=== PATIENT | female | born 1945 | race African-American/Black ===

== ENCOUNTER 2017-05-23 13:58 | Inpatient (IN) | payer OTHER ==
[~2017-05-23] VITALS: Ht 167.6 cm; Wt 114.9 kg
--- NOTE | ~2017-05-23 | EKG ---
[address] [address] ELECTROCARDIOGRAM REPORT Name: VERN RODRIGUEZ Room #: 170-9 ADM IN M.R.#: [id number] Admission: 05/23/17 Attend Phys: Lefty Avendano MD Discharge: Date of : 49 Report #: [id number] THIS REPORT FOR: //name// [facility] ED Test Date: 2017-05-23 Test Time: 14:19:22 Pat Name: VERN RODRIGUEZ Department: Room: 170 Gender: F Cup[place] Melter: SUSAN : 1945 Requested By: Alexi Lyman Order Number: [id number] MD: Luis Enrique Casarez Measurements Intervals [place] Rate: 79 P: 67 [place]: 165 QRS: 17 QRSD: 84 T: 48 QT: 355 QTc: 407 Interpretive Statements Sinus rhythm No previous ECG available for comparison Electronically Signed On 05-23-2017 16:53:[address] [employer] by Luis Enrique Casarez [email or web address] <ELECTRONICALLY SIGNED> By: Luis Enrique Casarez MD 05/23/17 1653 1419 1419 Luis Enrique Casarez MD /KATHERINE
--- NOTE | ~2017-05-23 | 2DMMODE ---
[facility] [address] [facility] [place] [place] [address] 2 D/M-MODE ECHOCARDIOGRAM Name: VERN RODRIGUEZ Room #: 201-P ADM IN M.R.#: [id number] Admission: 05/23/17 Attend Phys: Lefty Avendano MD Discharge: Date of : 49 Date of Service: 05/24/17 1033 Report #: [id number] THIS REPORT FOR: //name// APPROVED REPORT Study performed: 05/24/2017 09:09:12 EXAM: Comprehensive 2D, Doppler, and color-flow Echocardiogram Patient Location: Bedside Room #: 201 Status: routine BSA: 2.19 HR: 56 bpm BP: 144/65 mmHg Other Information Study Quality: Good Indications COPD Diabetes Hypertension/HDD 2D Dimensions RVDd: 47.03 mm LVEF(%): 61.01 (>50%) IVSd: 9.99 (7-11mm) LVOT Diam: 19.27 (18-24mm) LVDd: 45.03 mm PWd: 9.70 (7-11mm) Ascending Ao: 28.23 (22-36mm) LVDs: 30.38 (25-40mm) Aortic Root: 27.01 mm IVC: 27.00 mm Viveros's LVEF: 61.01 % Volumes Left Atrial Volume (Systole) Single Plane 4CH: 71.60 mL Single Plane 2CH: 64.47 mL LA ESV Index: 35.00 mL/m2 Aortic Valve AoV Peak Josh.: 1.55 m/s AO Peak Gr.: 9.63 mmHg LVOT Max P.90 mmHg LVOT Max V: 1.21 m/s JADE Vmax: 2.28 cm2 Mitral Valve E/A Ratio: 1.7 [facility] [address] 2 D/M-MODE ECHOCARDIOGRAM Name: VERN RODRIGUEZ Room #: 201-[facility] IN M.R.#: [id number] Admission: 05/23/17 Attend Phys: Lefty Avendano MD Discharge: Date of : 49 Date of Service: 05/24/17 1033 Report #: [id number] MV Decel. Time: 240.11 ms MV E Max Josh.: 1.11 m/s MV A Josh.: 0.67 m/s MV PHT: 69.63 ms IVRT: 50.75 ms Pulmonary Valve PV Peak Josh.: 1.01 m/s PV Peak Gr.: 4.06 mmHg Pulmonary Vein P Vein S: 0.66 m/s P Vein A: 0.24 m/s P Vein D: 0.42 m/s P Vein A Dur.: 120.0 msec P Vein S/D Ratio: 1.57 Tricuspid Valve TR Peak Josh.: 2.99 m/s TR Peak Gr.: 35.84 mmHg PA Pressure: 46.00 mmHg Left Ventricle The left ventricle is normal size. There is normal left ventricular wall thickness. The left ventricular systolic function is normal. The left ventricular ejection fraction is within the normal range. LVEF is 55-60%. The left ventricular diastolic function is normal. Right Ventricle Right ventricle is dilated. The right ventricular systolic function is normal. Atria Left atrium is dilated. Right atrium is dilated. Aortic Valve The aortic valve is normal in structure. No aortic regurgitation is present. There is no aortic valvular stenosis. Mitral Valve The mitral valve is normal in structure. Mild mitral regurgitation. No evidence of mitral valve stenosis. Tricuspid Valve The tricuspid valve is normal in structure. There is trace to mild tricuspid regurgitation. Estimated PAP 46 mmHg. There is moderate pulmonary hypertension. Pulmonic Valve [address] [address] 2 D/M-MODE ECHOCARDIOGRAM Name: VERN RODRIGUEZ Room #: 201-P ADM IN ..#: [id number] Admission: 05/23/17 Attend Phys: Lefty Avendano MD Discharge: Date of : 49 Date of Service: 05/24/17 1033 Report #: [id number] The pulmonary valve is normal in structure. Trace to mild pulmonic regurgitation. Great Vessels The aortic root is normal in size. IVC is dilated and collapses >50% with inspiration. Pericardium There is no pericardial effusion. <Conclusion> The left ventricle is normal size. LVEF is 55-60%. Right ventricle is dilated. The right ventricular systolic function is normal. Left atrium is dilated. Right atrium is dilated. The aortic valve is normal in structure. The mitral valve is normal in structure. Mild mitral regurgitation. The tricuspid valve is normal in structure. There is trace to mild tricuspid regurgitation. Estimated PAP 46 mmHg. There is moderate pulmonary hypertension. The pulmonary valve is normal in structure. Trace to mild pulmonic regurgitation. There is no pericardial effusion. <ELECTRONICALLY SIGNED> By: Wayne Kaplan MD 05/24/17 1033 1033 1033 Wayne Kaplan MD /INF
--- NOTE | ~2017-05-23 | HC ---
[facility] [address] [place] [address] CONSULTATION Name: VERN RODRIGUEZ Room #: 201-P [facility] IN M.R.#: [id number] Admission: 05/23/17 Attend Phys: Lefty Avendano MD Discharge: 05/26/17 Date of : 49 Report #: [id number] THIS REPORT FOR: //name// CC: Lefty Aragon DATE OF SERVICE: 05/24/2017 REASON FOR PRESENTATION: Shortness of breath. HISTORY OF PRESENT ILLNESS: A 71-year-old with past medical history of diabetes mellitus and hypertension. There seems to be an element of chronic kidney disease, but she is not really sure what her levels are. She is also known to have some heart issues. She had a prolonged hospital stay at [facility] and [facility] but she is not able to tell me about the details. She came to [facility] from the [facility] reporting that she had increasing shortness of breath and lower extremity edema. She tells me that she had been treated for some sort of infections with a PICC line and daptomycin. She denies any fever or chills. She did have some diarrhea. No reported chest pain. No reported nausea or vomiting. On her presentation, she was found to have thrombocytopenia and a creatinine of 2 with unknown baseline. She was admitted for further evaluation and management. It does look like that she has 20 years history of diabetes mellitus. She is not aware of remote history of diabetic retinopathy, but she does have some sort of peripheral neuropathy. PAST MEDICAL HISTORY: 1. Diabetes mellitus. 2. Hyperlipidemia. 3. Chronic kidney disease. 4. Questionable history of HIV. 5. COPD. 6. Cellulitis of the left upper extremity. 7. Heart failure. MEDICATIONS: 1. Lasix. 2. Spironolactone. 3. Furosemide. 4. Daptomycin. 5. Albuterol. 6. Hydralazine. 7. Diltiazem. 8. Carvedilol. 9. Insulin. FAMILY HISTORY: Hypertension. [facility] [address] [place] [address] CONSULTATION Name: VERN RODRIGUEZ Room #: 201-P [facility] IN M..#: [id number] Admission: 05/23/17 Attend Phys: Lefty Avendano MD Discharge: 05/26/17 Date of : 49 Report #: [id number] SOCIAL HISTORY: Former smoker. She quit less than a year ago. ALLERGIES: SULFA. REVIEW OF SYSTEMS: GENERAL: Significant for weakness. CARDIOVASCULAR: Significant for shortness of breath. PULMONARY: Significant for shortness of breath. No cough or hemoptysis. GASTROINTESTINAL: Decreased p.o. intake. GENITOURINARY: No frequency, no urgency. MUSCULOSKELETAL: As per the history of present illness. PHYSICAL EXAMINATION: GENERAL: She is alert, oriented. She seems somewhat confused and slow. VITAL SIGNS: Blood pressure 140/48. HEAD AND NECK: No jugular venous distention. CHEST: Decreased air entry bilaterally. CARDIOVASCULAR: No rub. ABDOMEN: Soft, nontender. LOWER EXTREMITIES: +3 edema. LABORATORY DATA: Reviewed. She has leukopenia with a hematocrit of 25.7 and a platelet of 62. Creatinine is 2.0. No UA available. ASSESSMENT, IMPRESSION, PLAN: 1. Fluid overload with pulmonary edema. 2. Chronic kidney disease. 3. Diabetes mellitus. 4. Hypertension. 5. Human immunodeficiency virus. 6. Anemia. 7. Leukopenia. 8. First and most important is to obtain the patient's previous hospital records from the [facility] and from [facility]. 9. Initiate appropriate workup with avoidance of redundant work. 10. Check some urine studies. 11. Check urine protein to creatinine ratio. 12. Fluid restriction. 13. Salt restriction. 14. Cardiac echo. 15. Discontinue IV fluid. [address] [address] CONSULTATION Name: VERN RODRIGUEZ Room #: 201-P [facility] IN M.R.#: [id number] Admission: 05/23/17 Attend Phys: Lefty Avendano MD Discharge: 05/26/17 Date of : 49 Report #: [id number] 16. Check a CPK since she was on daptomycin. 17. We will continue to follow along. <ELECTRONICALLY SIGNED> By: Matt Paniagua MD 05/27/17 0832 0837 00 Matt Paniagua MD /emeterio
--- NOTE | ~2017-05-23 | HC ---
[facility] [address] [place] [address] CONSULTATION Name: VERN RODRIGUEZ Room #: 201-P [facility] IN M.R.#: [id number] Admission: 05/23/17 Attend Phys: Lefty Avendano MD Discharge: 05/26/17 Date of : 49 Report #: [id number] THIS REPORT FOR: //name// CC: Lefty Aragon TYPE OF REPORT: Infectious diseases consultation. REASON FOR CONSULTATION: I was asked to evaluate concerning HIV infection, MRSA bacteremia and respiratory compromise. HISTORY OF PRESENT ILLNESS: The patient was hospitalized through the Emergency Room on 05/23/2017 with complaint of shortness of breath over the last 24 hours. History is fairly complicated having had 2 recent hospitalizations, first was in mid March at [facility] where she had respiratory failure, on BiPAP. She cannot give me further details of that hospital stay. Dismissed only to return to [facility] the [place] with again shortness of breath. At that one of the hospital stays, she was diagnosed with MRSA bacteremia. For this, she had a PICC line placed and was discharged on daptomycin. I am suspecting that this was her most recent hospitalization at [facility]. This data will need to be obtained. Records have been asked for. She was dismissed to [facility] yesterday and developed increased shortness of breath and was therefore hospitalized. She has been on oxygen 4 liters per nasal cannula. She has had some cough with minimal sputum production. No chest pain. Peripheral edema has been an issue. She states that she has 1 kidney after her left nephrectomy for renal cell cancer. I do not know what her baseline renal function is. At presentation, she had temperature up to 100.5 degrees. Hemodynamically, she has been stable. No cough or sputum production since admission. Blood cultures have been obtained. She is now on telemetry in the CCU. ALLERGIES: PENICILLIN and SULFA. MEDICATIONS: As noted on her MAR including daptomycin and Triumeq for her HIV. No corticosteroids. She is on insulin. Other meds as noted on her MAR. PAST MEDICAL HISTORY: HIV, hypertension, COPD, diabetes, acute renal failure, congestive heart failure, previous pneumonia, renal cell cancer, status post left nephrectomy. FAMILY HISTORY: Noncontributory. SOCIAL HISTORY: Smoker of cigarettes. No significant alcohol intake. No tuberculosis exposure. REVIEW OF SYSTEMS: No nausea or vomiting. Has had occasional loose stool. No dysuria or frequency. [address] [address] CONSULTATION Name: VERN RODRIGUEZ Room #: [address] [place] [address] [place] [facility].#: [id number] Admission: 05/23/17 Attend Phys: Lefty Avendano MD Discharge: 05/26/17 Date of : 49 Report #: [id number] PHYSICAL EXAMINATION: VITAL SIGNS: Afebrile and hemodynamically stable. Alert and cooperative. Poor historian for details of her admission. GENERAL: Right upper extremity PICC unremarkable on 2 liters of oxygen per nasal cannula. Moderately obese. SKIN: Unremarkable. EXTREMITIES: 2+ peripheral edema in the lower extremities. CHEST: Decreased breath sounds in the bases. HEART: Regular without murmur. ABDOMEN: Soft and nontender. NEUROLOGICAL: Unremarkable. LABORATORY STUDIES: Hemoglobin 8.6; platelet count 62,000 and white count 2.3 with 70% segs and 30% lymphs. Sodium 142, potassium 4.9, bicarbonate 29 and creatinine 2. AST 60, ALT 96, alkaline phosphatase 60 and bilirubin 0.6. Blood cultures are pending. Influenza antigen negative. Ultrasound of lower extremities negative. BNP 1109. RADIOLOGICAL DATA: Chest x-ray, increased vascular congestion. No consolidative infiltrates. Renal ultrasound pending. IMPRESSION: A 71-year old underlying human immunodeficiency virus, chronic obstructive pulmonary disease, chronic kidney disease and congestive heart failure; presents with worsening of her heart failure in the setting of recent methicillin-resistant Staphylococcus aureus bacteremia. Unclear as to the source of her bacteremia at this time. We will need further records to define her source. No evidence of subacute bacterial endocarditis identified on examination. She has evidence of renal failure with a creatinine of 2. Unclear as to her baseline. She is pancytopenic. This also will need to be further evaluated with previous CBCs. RECOMMENDATION: We will continue with vancomycin adjusted for her renal failure. No evidence of pneumonia at this time. Could discontinue her gram-negative coverage. Obtain previous records to define her MRSA bacteremia workup including echocardiograms. Obtain further information regarding CD4 count and viral load. Unclear if she has had other opportunistic infections. Further information will be gleaned from the records once available. <ELECTRONICALLY SIGNED> By: Magdaleno Fontanez MD 07/02/17 0809 1021 0300 Magdaleno Fontanez MD /nt
[2017-05-23 14:00] VITALS: BP 135/50
[2017-05-23 14:34] LABS: ABSOLUTE NEUTROPHILS 2.9 thou/uL (1.4-8.2); BASOPHILS 0.4 % (0.0-2.0); EOSINOPHILS 0.5 % (0.0-3.0); HEMATOCRIT 25.5 % (37.0-47.0); HEMOGLOBIN 8.5 gm/dL (12.0-15.0); LYMPHOCYTES 30.4 % (24.0-44.0); MCH 34.2 pg (26.0-34.0); MCHC 33.5 g/dL (28.0-37.0); MCV 102.1 fL (80.0-100.0); MONOCYTES 6.8 % (1.0-8.0); POLYS 61.9 % (36.0-66.0); RBC 2.49 mil/uL (4.20-5.00); WBC 4.7 thou/uL (4.0-11.0)
[2017-05-23 14:36] LABS: BE(vivo) 2.3 mmol/L (-2 to +3); HCO3 28.7 mmol/L (22.0-26.0); PCO2 54.4 mmHg (35.0-45.0); PO2 75.1 mmHg (80.0-100.0)
[2017-05-23] MEDS ORDERED: HUMALOG100 UNIT/2 SQ (14:41)
[2017-05-23] MEDS ORDERED: COREG25 MG PO (14:41)
[2017-05-23] MEDS ORDERED: FLONASE 0.05%50 MCG NASAL (14:42)
[2017-05-23] MEDS ORDERED: CARDIZEM CD240 MG PO (14:42)
[2017-05-23] MEDS ORDERED: MUCINEX600 MG PO (14:42)
[2017-05-23] MEDS ORDERED: NEURONTIN 300M300 M2 PO (14:42)
[2017-05-23 14:43] LABS: ANION GAP 6 mmol/L (7-16); BUN 31 mg/dL (7-18); CALCIUM 8.4 mg/dL (8.5-10.1); CHLORIDE 106 mmol/L (98-107); CO2 32 mmol/L (21-32); CREATININE 1.7 mg/dL (0.6-1.0); GLUCOSE 152 mg/dL (74-106); POTASSIUM 4.4 mmol/L (3.5-5.1); SODIUM 144 mmol/L (136-145)
[2017-05-23] MEDS ORDERED: HYDRALAZINE 2525 MG PO (14:43)
[2017-05-23] MEDS ORDERED: HYDROXYZINE HCL25 M1 PO (14:43)
[2017-05-23] MEDS ORDERED: LANTUS100 UNIT/M SUBQ (14:43)
[2017-05-23] MEDS ORDERED: ISOSORBIDE DINI20 M2 PO (14:44)
[2017-05-23] MEDS ORDERED: MIRALAX17 G1 PO (14:45)
[2017-05-23] MEDS ORDERED: MICONAZOLE 31 EACH TOP (14:45)
[2017-05-23] MEDS ORDERED: TRIUMEQ TABLET1 EACH PO ×2 (14:46→14:47)
[2017-05-23] MEDS ORDERED: PROAIR HFA8.5 GM INH (14:46)
[2017-05-23] MEDS ORDERED: ANORO ELLIPTA1 EACH INH (14:48)
[2017-05-23] MEDS ORDERED: CARDURA4 MG PO (14:48)
[2017-05-23] MEDS ORDERED: ACIDOPHILUS1 EAC3 PO (14:48)
[2017-05-23] MEDS ORDERED: CUBICIN500 MG IVPB (14:50)
[2017-05-23 14:51] LABS: ALBUMIN 2.7 g/dL (3.4-5.0); SGOT 60 U/L (15-37); SGPT 96 U/L (30-65); TOTAL BILIRUBIN 0.6 mg/dL (<0.1-1.0); TOTAL PROTEIN 5.2 g/dL (6.4-8.2); TROPONIN-I < 0.04 ng/mL (<0.06)
[2017-05-23] MEDS ORDERED: LASIX 20 MG TAB20 MG PO (14:56)
[2017-05-23] MEDS ORDERED: ALDACTONE25 MG PO (14:57)
[2017-05-23] MEDS ORDERED: OXYGEN MISCELL (14:58)
[2017-05-23] MEDS ORDERED: LASIX 20 MG TAB20 MG INJECTION (14:58)
[2017-05-23 15:13] LABS: ANISOCYTOSIS 1+
[2017-05-23 15:14] LABS: PLATELET COUNT 65 thou/uL (150-400)
[2017-05-23 17:24] VITALS: BP 115/49
[2017-05-23 21:09] VITALS: BP 104/50
[2017-05-23 23:57] VITALS: BP 110/58
[2017-05-24 04:25] VITALS: BP 144/65
[2017-05-24 05:44] LABS: HEMATOCRIT 25.7 % (37.0-47.0); HEMOGLOBIN 8.6 gm/dL (12.0-15.0); MCHC 33.4 g/dL (28.0-37.0); MCV 101.9 fL (80.0-100.0); RBC 2.52 mil/uL (4.20-5.00); RDW 16.9 % (10.5-14.5); WBC 2.3 thou/uL (4.0-11.0)
[2017-05-24 05:57] LABS: CALCIUM 8.6 mg/dL (8.5-10.1); POTASSIUM 4.9 mmol/L (3.5-5.1)
[2017-05-24 07:13] LABS: ABSOLUTE NEUTROPHILS 1.6 thou/uL (1.4-8.2)
[2017-05-24 07:14] LABS: PLATELET COUNT 62 thou/uL (150-400); PLATELET ESTIMATE DECREASED
[2017-05-24 07:15] LABS: ANISOCYTOSIS 1+
[2017-05-24 07:16] LABS: MACROCYTES 1+; POLYCHROMASIA SLIGHT
[2017-05-24 08:00] VITALS: BP 142/58
[2017-05-24 11:23] VITALS: BP 127/56
[2017-05-24 15:26] VITALS: BP 104/49
[2017-05-24 19:59] VITALS: BP 136/61
[2017-05-25 04:20] VITALS: BP 132/43
[2017-05-25 04:31] LABS: ABSOLUTE NEUTROPHILS 2.2 thou/uL (1.4-8.2); BASOPHILS 0.5 % (0.0-2.0); EOSINOPHILS 0.1 % (0.0-3.0); HEMATOCRIT 24.1 % (37.0-47.0); HEMOGLOBIN 8.2 gm/dL (12.0-15.0); LYMPHOCYTES 26.7 % (24.0-44.0); MCH 34.3 pg (26.0-34.0); MCHC 33.9 g/dL (28.0-37.0); MCV 101.2 fL (80.0-100.0); MONOCYTES 5.4 % (1.0-8.0); PLATELET COUNT 79 thou/uL (150-400); POLYS 67.3 % (36.0-66.0); RBC 2.38 mil/uL (4.20-5.00); WBC 3.2 thou/uL (4.0-11.0)
[2017-05-25 04:36] LABS: CALCIUM 8.8 mg/dL (8.5-10.1); CREATININE 2.1 mg/dL (0.6-1.0); POTASSIUM 4.8 mmol/L (3.5-5.1)
[2017-05-25 04:38] LABS: URINE BILIRUBIN NEGATIVE (Negative); URINE BLOOD TRACE (Negative); URINE CLARITY CLEAR; URINE COLOR YELLOW; URINE GLUCOSE-RANDOM* NEGATIVE (Negative); URINE KETONES NEGATIVE (Negative); URINE LEUKOCYTES NEGATIVE (Negative); URINE NITRITE NEGATIVE (Negative); URINE PROTEIN (DIPSTICK) NEGATIVE (Negative); URINE SPECIFIC GRAVITY 1.025 (1.005-1.035); URINE UROBILINOGEN 0.2 E.U./dl (0.2-1.0)
[2017-05-25 08:18] VITALS: BP 133/58
[2017-05-25 11:08] VITALS: BP 134/56
[2017-05-25 11:58] LABS: URINE CREATININE-RANDOM* 130.9 mg/dL; URINE PROTEIN-RANDOM* 31.8 mg/dL (<11.9)
[2017-05-25 15:34] VITALS: BP 156/80
[2017-05-25 19:33] VITALS: BP 152/80
== END 2017-05-26 04:46 | DRG 871 ==
LOC: ER 13:58 → 2N 15:17 → EROBS 15:17 → 2N 17:34
PROVIDERS: Hospitalist; Nurse Practitioner; Physician Assistant
PROC: 02HV33Z Insertion of Infusion Device into Superior Vena Cava, Percutaneous Approach (ICD-10-PCS; principal; 2017-05-25)
DX: A41.9 Sepsis, unspecified organism (principal); J96.01 Acute respiratory failure with hypoxia; J96.02 Acute respiratory failure with hypercapnia; N17.9 Acute kidney failure, unspecified; E46 Unspecified protein-calorie malnutrition; Z68.41 Body mass index [BMI] 40.0-44.9, adult; I13.0 Hypertensive heart and chronic kidney disease with heart failure and stage 1 through stage 4 chronic kidney disease, or unspecified chronic kidney disease; L03.114 Cellulitis of left upper limb; J44.9 Chronic obstructive pulmonary disease, unspecified; N18.9 Chronic kidney disease, unspecified; D69.6 Thrombocytopenia, unspecified; E78.5 Hyperlipidemia, unspecified; E86.0 Dehydration; E87.70 Fluid overload, unspecified; D64.9 Anemia, unspecified; D72.819 Decreased white blood cell count, unspecified; B95.62 Methicillin resistant Staphylococcus aureus infection as the cause of diseases classified elsewhere; E11.22 Type 2 diabetes mellitus with diabetic chronic kidney disease; I50.9 Heart failure, unspecified; E11.42 Type 2 diabetes mellitus with diabetic polyneuropathy; Z88.1 Allergy status to other antibiotic agents; Z88.2 Allergy status to sulfonamides; Z87.891 Personal history of nicotine dependence; Z90.5 Acquired absence of kidney; Z82.49 Family history of ischemic heart disease and other diseases of the circulatory system
CPT/HCPCS: 10081